=== PATIENT | female | born 1965 | race Hispanic/Latino ===

== ENCOUNTER 2018-02-21 11:42 | Inpatient (IN) | payer BC ==
[2018-02-21] MEDS ORDERED: Sodium Chloride 0.9% 1,000 ML IV SCH (12:45)
--- NOTE | 2018-02-21 12:47 | ED PDOC ---
Arrival/HPI - General Chief Complaint: Abdominal Pain Time Seen by Provider: 02/21/18 12:43 Historian: Patient - History of Present Illness Narrative History of Present Illness (Text): 02/21/18 12:51 52 year old female, whose past medical history includes hypertension, who presents to the emergency department complaining of diarrhea, vomiting, abdominal pain, fever, body aches, and headaches since Monday. Patient notes a fever of 102.6 recorded yesterday. Patient notes pain is intermittent. Patient denies any chills, chest pain, shortness of breath, dizziness, or any other complaints. Time/Duration: < week (5 days) Symptom Onset: Gradual Symptom Course: Unchanged Activities at Onset: Light Context: Home Past Medical History - Provider Review Nursing Documentation Reviewed: Yes - Infectious Disease Hx of Infectious Diseases: None - Cardiac Hx Cardiac Disorders: Yes Hx Hypertension: Yes - Pulmonary Hx Respiratory Disorders: No - Neurological Hx Neurological Disorder: No - HEENT Hx HEENT Disorder: No - Renal Hx Renal Disorder: No - Endocrine/Metabolic Hx Endocrine Disorders: No - Hematological/Oncological Hx Blood Disorders: Yes Hx Anemia: Yes Hx Blood Transfusions: No - Integumentary Hx Dermatological Disorder: No - Musculoskeletal/Rheumatological Hx Musculoskeletal Disorders: Yes (TEAR L KNEE MENISCUS) Hx Arthritis: Yes - Gastrointestinal Hx Gastrointestinal Disorders: No - Genitourinary/Gynecological Hx Genitourinary Disorders: No - Psychiatric Hx Psychophysiologic Disorder: Yes Hx Anxiety: Yes Hx Substance Use: No - Surgical History Hx Dilation and Curettage: Yes Hx Hysterectomy: Yes Hx Tonsillectomy: Yes Other/Comment: lumpectomy - Anesthesia Hx Anesthesia: Yes Hx Anesthesia Reactions: No Hx Malignant Hyperthermia: No - Suicidal Assessment Feels Threatened In Home Enviroment: No Family/Social History - Physician Review Nursing Documentation Reviewed: Yes Family/Social History: Unknown Family HX Smoking Status: Former Smoker Hx Alcohol Use: Yes Hx Substance Use: No Hx Substance Use Treatment: No Allergies/Home Meds Allergies/Adverse Reactions: Allergies blueberry Allergy (Severe, Verified 12/10/15 16:24) URTICARIA Penicillins Allergy (Severe, Verified 12/10/15 16:24) URTICARIA Home Medications: Home Meds Medication Instructions Recorded Confirmed Iron Fum,Ag/C/B12/Folic/Ca/Suc 1 tab PO DAILY 04/19/12 09/12/16 [Multigen Plus] PARoxetine [Paxil] 10 mg PO DAILY 04/19/12 09/12/16 Hydrochlorothiazide [HCTZ] 25 mg PO DAILY 02/27/14 09/12/16 Omeprazole 40 mg PO DAILY 02/27/14 09/12/16 Biotin [[facility] Biotin] 5,000 mcg PO DAILY 06/22/15 09/12/16 Cholecalciferol (Vitamin D3) 2,000 iu PO DAILY 06/22/15 09/12/16 [Vitamin D3] Losartan [Cozaar] 1 tab PO DAILY 12/10/15 09/12/16 Review of Systems - Physician Review All systems were reviewed & negative as marked: Yes - Review of Systems Constitutional: Normal Eyes: Normal ENT: Normal Respiratory: Normal. absent: SOB, Cough Cardiovascular: Normal. absent: Chest Pain Gastrointestinal: Abdominal Pain, Diarrhea, Vomiting Genitourinary Female: Normal. absent: Dysuria, Frequency Musculoskeletal: Other (general body aches) Skin: Normal. absent: Rash Neurological: Headache Endocrine: Normal Hemo/Lymphatic: Normal Psychiatric: Normal Physical Exam - Physical Exam Narrative Physical Exam (Text): 02/21/18 12:54 Gen: VS reviewed, alert, well developed, well nourished, nontoxic, mild distress. ENT: normal pharynx. Eye: EOMI, PERRL. Neck: no JVD, supple, no adenopathy. CV: regular rate, regular rhythm, no rubs, no murmur, no gallops, S1, S2, pulses equal and strong. Pulm: no distress, clear to auscultation, no wheeze, no rhonchi, breath sounds equal, no rales. Abd: mild mid and LLQ tenderness, no guarding, no rebound, no rigidity, normal bowel sounds. Ext: no edema. Skin: good color, no rash, no cyanosis. Psych: responds appropriately to questions, normal affect. Neuro: oriented x 3, CN2-12 intact grossly, motor intact, sensation intact. Vital Signs Reviewed: Yes Vital Signs Temp Pulse Resp BP Pulse Ox 02/21/18 12:34 99.0 F 72 16 146/86 99 Temperature: Afebrile Blood Pressure: Normal Pulse: Regular Respiratory Rate: Normal Appearance: Positive for: Well-Appearing, Non-Toxic, Comfortable Pain Distress: None Mental Status: Positive for: Alert and Oriented X 3 Medical Decision Making ED Course and Treatment: 02/21/18 12:55 Impression: 52 year old female presents to the emergency department complaining of diarrhea , vomiting, abdominal pain, fever, body aches, and headaches. Plan: -- CT abdomen/pelvis -- Labs -- Stool Culture -- Reassess and disposition Progress Notes: 02/21/18 15:[address] with contrast: Creator : Jaskaran Guajardo MD IMPRESSION: There is mild mural thickening throughout the colon consistent with colitis. There are no inflammatory changes in the adjacent fat planes. 02/21/18 16:01 Discussed case with , who is aware and accepts admission of patient to his service. Patient to be admitted for presumed infectious colitis. Patient would need IV antibiotics and IV fluids. 02/21/18 17:35 paient is aware of the large cyst in the left kidney and knows to follow up with urologist - Lab Interpretations Lab Results: 02/21/18 13:10 02/21/18 13:10 Lab Results 02/21/18 13:10: WBC 3.7 L D, RBC 4.48, Hgb 14.2, Hct 41.7, MCV 93.1, MCH 31.7, MCHC 34.1, RDW 13.2, Plt Count 224, MPV 9.8, Gran % 67.4, Lymph % (Auto) 20.9 L , [place] % (Auto) 9.8 H, Eos % (Auto) 1.4 L, Baso % (Auto) 0.5, Gran # 2.48, Lymph # (Auto) 0.8 L, [place] # (Auto) 0.4, Eos # (Auto) 0.1, Baso # (Auto) 0.02 02/21/18 13:10: Sodium 143, Potassium 3.4 L, Chloride 101, Carbon Dioxide 25, Anion Gap 20, BUN 10, Creatinine 0.7, Est GFR ( Amer) > 60, Est GFR (Non- Af Amer) > 60, Random Glucose 100, Calcium 9.5, Total Bilirubin 0.5, AST 53 H, ALT 89 H, Alkaline Phosphatase 64, Total Protein 7.1, Albumin 4.2, Globulin 2.9 , Albumin/Globulin Ratio 1.4, Lipase 54 I have reviewed the lab results: Yes - RAD Interpretation Radiology Orders: 02/21/18 12:44 ABDOMEN & PELVIS [ABD & PELVIS IV CONTRAST ONLY] [CT] Stat Director Data Architecture: Radiologist - Medication Orders Current Medication Orders: Hydrochlorothiazide (Hydrodiuril) 25 mg PO DAILY JAY Sodium Chloride (Sodium Chloride 0.9%) 1,000 mls @ 150 mls/hr IV .[id number] JAY Last Admin: 02/21/18 13:20 Dose: 150 mls/hr eMAR Start Stop Document 02/21/18 13:20 MS (Rec: 02/21/18 13:20 MS [id number]) Intravenous Solution Start Date 02/21/18 Start Time 13:20 Ciprofloxacin (Cipro 400mg/200ml Dsw) 400 mg in 200 mls @ 133.3 mls/hr IVPB Q12 JAY PRN Reason: Protocol Stop: 02/21/18 23:31 Metronidazole (Flagyl) 500 mg in 100 mls @ 100 mls/hr IVPB Q8 JAY PRN Reason: Protocol Last Admin: 02/21/18 16:38 Dose: 100 mls/hr eMAR Start Stop Document 02/21/18 16:38 MS (Rec: 02/21/18 16:38 MS [id number]) Intravenous Solution Start Date 02/21/18 Start Time 16:38 End Date 02/21/18 End time 17:38 Total Infusion Time 60 Losartan Potassium (Cozaar) 50 mg PO DAILY JAY Paroxetine HCl (Paxil) 10 mg PO DAILY JAY Discontinued Medications Ciprofloxacin (Cipro 400mg/200ml Dsw) 400 mg in 200 mls @ 133.3 mls/hr IVPB STAT STA PRN Reason: Protocol Stop: 02/21/18 17:22 Metronidazole (Flagyl) 500 mg in 100 mls @ 100 mls/hr IVPB STAT STA PRN Reason: Protocol Stop: 02/21/18 16:52 - Scribe Statement The provider has reviewed the documentation as recorded by the Scribsaeed Trivedi All medical record entries made by the Scribe were at my direction and personally dictated by me. I have reviewed the chart and agree that the record accurately reflects my personal performance of the history, physical exam, medical decision making, and the department course for this patient. I have also personally directed, reviewed, and agree with the discharge instructions and disposition. Disposition/Present on Arrival - Present on Arrival Any Indicators Present on Arrival: No History of DVT/PE: No History of Uncontrolled Diabetes: No Urinary Catheter: No History of Decub. Ulcer: No History Surgical Site Infection Following: None - Disposition Have Diagnosis and Disposition been Completed?: Yes Diagnosis: Colitis Disposition: HOSPITALIZED Disposition Time: 16:02 Patient Plan: Admission Patient Problems: Current Active Problems Problem Status Onset Colitis Acute Condition: FAIR
[2018-02-21] MEDS: Sodium Chloride 0.9% 1,000 ML IV SCH (13:20)
[2018-02-21 13:23] LABS: BASO # 0.02 K/mm3 (0.0-2.0); BASO % 0.5 % (0.0-3.0); EOS # 0.1 (0.0-0.7); EOS % 1.4 % (1.5-5.0); GRAN # 2.48 (1.4-6.5); GRAN % 67.4 % (50.0-68.0); HEMOGLOBIN 14.2 g/dL (12.0-16.0); LYMPH # 0.8 (1.2-3.4); LYMPH % 20.9 % (22.0-35.0); MEAN CELL VOLUME 93.1 fl (80.0-105.0); MEAN CORPUSCULAR HEMOGLOBIN 31.7 pg (25.0-35.0); MEAN CORPUSCULAR HGB CONC 34.1 g/dl (31.0-37.0); MEAN PLATELET VOLUME 9.8 fl (7.0-11.0); MONO # 0.4 (0.1-0.6); MONO % 9.8 % (1.0-6.0); RBC 4.48 10^6/uL (3.5-6.1); RED CELL DISTRIBUTION WIDTH 13.2 % (11.5-14.5); WHITE BLOOD COUNT 3.7 10^3/ul (4.5-11.0)
[2018-02-21 14:21] LABS: BLOOD UREA NITROGEN 10 mg/dL (7-21); CALCIUM 9.5 mg/dL (8.4-10.5); GFR AFRICAN-AMERICAN > 60; GFR NON-AFRICAN AMERICAN > 60
[2018-02-21 14:22] LABS: ALB/GLOB RATIO 1.4 (1.1-1.8); ALBUMIN 4.2 g/dL (3.0-4.8); ALT/SGPT 89 U/L (7-56); AST/SGOT 53 U/L (14-36); LIPASE 54 U/L (23-300)
[2018-02-21] MEDS ORDERED: Iohexol 350 MG/100 ML VIAL ONE (14:32)
--- NOTE | 2018-02-21 15:05 | CT ---
Date of service: 02/21/2018 PROCEDURE: CT Abdomen and Pelvis with contrast HISTORY: mid and llq pain, fever COMPARISON: None. TECHNIQUE: Contrast dose: 100 cc of Omni 350 Radiation dose: Total exam DLP = 1031 mGy-cm. This CT exam was performed using one or more of the following dose reduction techniques: Automated exposure control, adjustment of the mA and/or kV according to patient size, and/or use of iterative reconstruction technique. FINDINGS: LOWER THORAX: Unremarkable. LIVER: Unremarkable. No gross lesion or ductal dilatation. GALLBLADDER AND BILE DUCTS: Unremarkable. PANCREAS: Unremarkable. No gross lesion or ductal dilatation. SPLEEN: Unremarkable. ADRENALS: Unremarkable. No mass. KIDNEYS AND URETERS: Unremarkable. No hydronephrosis. No solid mass. VASCULATURE: Unremarkable. No aortic aneurysm. BOWEL: There is mild mural thickening throughout the colon consistent with colitis. There are no inflammatory changes in the adjacent fat planes. APPENDIX: Normal appendix. PERITONEUM: Unremarkable. No free fluid. No free air. LYMPH NODES: Unremarkable. No enlarged lymph nodes. BLADDER: Unremarkable. REPRODUCTIVE: Unremarkable. BONES: No acute fracture. OTHER FINDINGS: None. IMPRESSION: There is mild mural thickening throughout the colon consistent with colitis. There are no inflammatory changes in the adjacent fat planes.
[2018-02-21] MEDS ORDERED: Ciprofloxacin 400mg/200ml D5W 400 MG/200 ML BAG IVPB STA (15:52)
[2018-02-21] MEDS ORDERED: metroNIDAZOLE IV 500 mg/100 ml 500 MG/100 ML BAG IVPB STA (15:53)
[2018-02-21] MEDS: metroNIDAZOLE IV 500 mg/100 ml 500 MG/100 ML BAG IVPB SCH ×2 (16:38→22:15)
[2018-02-21] MEDS ORDERED: Ciprofloxacin 400mg/200ml D5W 400 MG/200 ML BAG IVPB SCH (22:00)
[2018-02-22] MEDS: metroNIDAZOLE IV 500 mg/100 ml 500 MG/100 ML BAG IVPB SCH ×3 (05:29→21:55)
[2018-02-22] MEDS: Sodium Chloride 0.9% 1,000 ML IV SCH (05:31)
[2018-02-22 07:17] LABS: HEMOGLOBIN 13.4 g/dL (12.0-16.0); MEAN CELL VOLUME 92.9 fl (80.0-105.0); MEAN CORPUSCULAR HEMOGLOBIN 30.7 pg (25.0-35.0); MEAN PLATELET VOLUME 9.8 fl (7.0-11.0); RBC 4.37 10^6/uL (3.5-6.1); WHITE BLOOD COUNT 3.6 10^3/ul (4.5-11.0)
[2018-02-22 07:51] LABS: ALB/GLOB RATIO 1.3 (1.1-1.8); ALBUMIN 3.9 g/dL (3.0-4.8); ALT/SGPT 75 U/L (7-56); AST/SGOT 34 U/L (14-36); BLOOD UREA NITROGEN 8 mg/dL (7-21); GFR AFRICAN-AMERICAN > 60; GFR NON-AFRICAN AMERICAN > 60
[2018-02-22 08:36] VITALS: BMI 30.7
[2018-02-22] MEDS ORDERED: Potassium Chloride 20 mEq ER Tab PO STA (08:45)
--- NOTE | 2018-02-22 08:47 | CP.PCM.HP ---
<Lashanda Carlos - Last Filed: 02/22/18 12:30> History of Present Illness - History of Present Illness History of Present Illness: H&P for Poly Mayer PGY3 This is a 52yo female with past medical history of HTN and GERD who came to ED for fever, abdominal pain, nausea/vomiting and diarrhea for 4 days. Patient states she checked her fever at home and it was 102. She was having abdominal pain that was epigastric and cramping that was intermittent and radiated throughout her abdomen. She was having ~ 10 episodes of non-bloody diarrhea per day and had 1-2 episodes of non-blood/non-bilious vomiting. She denies recent travel, new foods, sick contacts or anyone sick at home or recent antibiotics use. She had a colonoscopy about 3 years ago with 2 polyps found consistent for tubular adenomas. This morning patient is resting comfortably in bed and saying that her diarrhea has been improving and has been feeling more hungry. Patient denies chest pain, shortness of breath, nausea/vomiting, fever/chills, dysuria/ hematuria, numbness/tingling. Past medical history: HTN, GERD, depression Past surgical history: hysterectomy, L breast lumpectomy, L knee meniscus repair Home meds: Reviewed Allergies: blueberry Social history: Former smoker (quit 12yrs ago), drinks alcohol socially, denies drug use. Lives with family Family history: Maternal grandfather: Colon ca. HTN, DM runs in family Present on Admission - Present on Admission Any Indicators Present on Admission: No Review of Systems - Review of Systems All systems: reviewed and no additional remarkable complaints except Review of Systems: 12 point ROS reviewed as per HPI and is otherwise negative Past Patient History - Infectious Disease Hx of Infectious Diseases: None - Past Social History Smoking Status: Former Smoker - CARDIAC Hx Cardiac Disorders: Yes Hx Hypertension: Yes - PULMONARY Hx Respiratory Disorders: No - NEUROLOGICAL Hx Neurological Disorder: No - HEENT Hx HEENT Problems: No - RENAL Hx Chronic Kidney Disease: No - ENDOCRINE/METABOLIC Hx Endocrine Disorders: No - HEMATOLOGICAL/ONCOLOGICAL Hx Blood Disorders: Yes Hx Anemia: Yes - INTEGUMENTARY Hx Dermatological Problems: No - MUSCULOSKELETAL/RHEUMATOLOGICAL Hx Falls: No - GASTROINTESTINAL Hx Gastrointestinal Disorders: No - GENITOURINARY/GYNECOLOGICAL Hx Genitourinary Disorders: No - PSYCHIATRIC Hx Psychophysiologic Disorder: Yes Hx Anxiety: Yes - SURGICAL HISTORY Hx Hysterectomy: Yes Other/Comment: lumpectomy - ANESTHESIA Hx Anesthesia: Yes Hx Anesthesia Reactions: No Hx Malignant Hyperthermia: No Meds Allergies/Adverse Reactions: Allergies Allergy/AdvReac Type Severity Reaction Status Date / Time blueberry Allergy Severe URTICARIA Verified 12/10/15 16:24 Physical Exam - Constitutional Appears: No Acute Distress - Head Exam Head Exam: ATRAUMATIC, NORMAL INSPECTION, NORMOCEPHALIC - Eye Exam Eye Exam: Normal appearance, PERRL Pupil Exam: NORMAL ACCOMODATION, PERRL - ENT Exam ENT Exam: Mucous Membranes Moist - Respiratory Exam Respiratory Exam: Clear to Auscultation Bilateral, NORMAL BREATHING PATTERN. absent: Rales, Rhonchi, Wheezes - Cardiovascular Exam Cardiovascular Exam: REGULAR RHYTHM, +S1, +S2. absent: Gallop, Rubs, Systolic Murmur - GI/Abdominal Exam GI & Abdominal Exam: Normal Bowel Sounds, Soft, Tenderness (epigastric ). absent: Mass, Rebound, Rigid - Extremities Exam Extremities exam: Positive for: normal inspection. Negative for: calf tenderness, pedal edema - Neurological Exam Neurological exam: Alert, CN II-XII Intact, Normal Gait, Oriented x3 - Psychiatric Exam Psychiatric exam: Normal Affect, Normal Mood - Skin Skin Exam: Dry, Warm Results - Vital Signs Recent Vital Signs: Last Vital Signs Temp 99.6 F 02/22/18 02:26 Pulse 70 02/22/18 02:26 Resp 18 02/22/18 02:26 BP 137/74 02/22/18 02:26 Pulse Ox 97 02/21/18 22:00 - Labs Result Diagrams: 02/22/18 06:30 02/22/18 06:30 Labs: Laboratory Results - last 24 hr 02/22/18 02/22/18 06:30 06:30 WBC 3.6 L RBC 4.37 Hgb 13.4 Hct 40.6 MCV 92.9 MCH 30.7 MCHC 33.0 RDW 13.0 Plt Count 229 MPV 9.8 Sodium 142 Potassium 2.9 L* Chloride 102 Carbon Dioxide 29 Anion Gap 14 BUN 8 Creatinine 0.7 Est GFR ( Amer) > 60 Est GFR (Non-Af Amer) > 60 Random Glucose 93 Calcium 9.0 Phosphorus 4.3 Magnesium 1.7 Total Bilirubin 0.5 AST 34 ALT 75 H Alkaline Phosphatase 54 Total Protein 6.9 Albumin 3.9 Globulin 3.0 Albumin/Globulin Ratio 1.3 Assessment & Plan - Assessment and Plan (Free Text) Assessment: This is a 52yo female with past medical history of HTN and GERD who is admitted for 1. Colitis - seen on CT v. gastroenteritis 2. Hypokalemia - secondary to diarrhea 3. HTN 4. GERD 5. Hx of Depression Plan: Continue IV antibiotics. Patient is now afebrile. Advance diet as tolerated. Replace electrolytes as needed and will recheck in AM. GI consulted. Recommendations appreciated. Recommended low fat/lactose diet. If patient tolerates diet will discharge home tomorrow. She is on GI prophylaxis and is ambulating well. Case seen, discussed and reviewed with Dr. Juno Carlos PGY3 - Date & Time Date: 02/22/18 Time: 07:00 <Junior Fraire - Last Filed: 02/22/18 22:01> Results - Vital Signs Recent Vital Signs: Last Vital Signs Temp 98.7 F 02/22/18 14:00 Pulse 96 H 02/22/18 14:00 Resp 18 02/22/18 14:00 BP 119/73 02/22/18 14:00 Pulse Ox 96 02/22/18 14:00 - Labs Result Diagrams: 02/22/18 06:30 02/22/18 06:30 Labs: Laboratory Results - last 24 hr 02/22/18 02/22/18 06:30 06:30 WBC 3.6 L RBC 4.37 Hgb 13.4 Hct 40.6 MCV 92.9 MCH 30.7 MCHC 33.0 RDW 13.0 Plt Count 229 MPV 9.8 Sodium 142 Potassium 2.9 L* Chloride 102 Carbon Dioxide 29 Anion Gap 14 BUN 8 Creatinine 0.7 Est GFR ( Amer) > 60 Est GFR (Non-Af Amer) > 60 Random Glucose 93 Calcium 9.0 Phosphorus 4.3 Magnesium 1.7 Total Bilirubin 0.5 AST 34 ALT 75 H Alkaline Phosphatase 54 Total Protein 6.9 Albumin 3.9 Globulin 3.0 Albumin/Globulin Ratio 1.3 Assessment & Plan - Assessment and Plan (Free Text) Plan: Pt seen and examined. I have reviewed the note of the medical device assembler and agree with it. I have discussed the assessment and plan with the resident. I have reviewed the patient's labs and medications. Pt with colitis. She is feeling better. She is tolerating liq diet.
[2018-02-22] MEDS ORDERED: Non Formulary Medication (Hydrochlorothiazide [Hctz] 25 MG) PO SCH (10:00)
--- NOTE | 2018-02-22 11:06 | CON ---
DATE: 02/22/2018 GASTROENTEROLOGY CONSULTATION REQUESTING PHYSICIAN: Junior Fraire MD REASON FOR CONSULTATION: I have been asked to see this 52-year-old female with a history of hypertension who was admitted to the hospital with 4 days of diarrhea and mid abdominal cramps. She had one episode of vomiting in the emergency room. She also has been running temperatures of 101 with a T-max of 102.6 two days ago. She denies any rectal bleeding, hematemesis or melena. She denies any recent travel or ingestion of any unusual foods. She states that her bowel movements are becoming less frequent and less watery. She denies any recent antibiotic use. PAST MEDICAL HISTORY: Notable for hypertension. PAST SURGICAL HISTORY: Notable for left knee surgery for meniscus repair, lumpectomy and hysterectomy. SOCIAL HISTORY: She consumes alcohol on a social basis. She quit smoking years ago. FAMILY HISTORY: Noncontributory. REVIEW OF SYSTEMS: A 14-point review of systems is positive for diarrhea and abdominal pain. MEDICATIONS AT HOME: Include losartan, vitamin D3, omeprazole, hydrochlorothiazide and Paxil. PHYSICAL EXAMINATION: GENERAL: Well-developed female, lying in bed, in no acute distress. VITAL SIGNS: Reveal temperature of 99.6, blood pressure 137/74, heart rate 70. HEENT: Reveal sclerae to be white. Conjunctivae pink. NECK: Supple. CHEST: Lungs are clear. HEART: Reveals regular rate and rhythm. ABDOMEN: Soft, nontender. EXTREMITIES: Show no edema. LABORATORY DATA: Reveal white blood cell count 3.6, hemoglobin 13.4. Chemistries reveal potassium of 2.9, AST 34, ALT 75, alkaline phosphatase of 54. CT scan of the abdomen and pelvis reveal just mild nonspecific diffuse mural thickening of the colon. No pericolonic inflammation or fluid collection is seen. IMPRESSION: Probable acute gastroenteritis, clinically improving. RECOMMENDATIONS: 1. I will advance the patient to a low-fat lactose-free diet. 2. Replace potassium as she is hypokalemic secondary to a diarrhea. Note, she has had a colonoscopy within the last 10 years. 3. If diet is tolerated, she can be discharged to home with outpatient followup. Casimiro Michelle MD
[2018-02-22 12:54] LABS: HEPATITIS A IGM NEGATIVE (NEGATIVE); HEPATITIS B CORE AB NEGATIVE (NEGATIVE); HEPATITIS B SURFACE AG Negative (NEGATIVE)
[2018-02-22 13:03] LABS: HEPATITIS C ANTIBODY NEGATIVE (NEGATIVE)
[2018-02-22] MEDS ORDERED: Potassium Chloride 20 mEq ER Tab PO ONE (14:00)
--- NOTE | 2018-02-23 05:40 | CP.PCM.DIS ---
<TerranceLashanda - Last Filed: 02/23/18 09:27> Provider - Provider Date of Admission: 02/21/18 16:02 Attending physician: Junior Fraire MD Primary care physician: Junior Fraire MD Consults: GI: Dr. Michelle Time Spent in preparation of Discharge (in minutes): 35 Hospital Course - Lab Results Lab Results: Most Recent Lab Values WBC 3.6 10^3/ul (4.5-11.0) L 02/22/18 06:30 RBC 4.37 10^6/uL (3.5-6.1) 02/22/18 06:30 Hgb 13.4 g/dL (12.0-16.0) 02/22/18 06:30 Hct 40.6 % (36.0-48.0) 02/22/18 06:30 MCV 92.9 fl (80.0-105.0) 02/22/18 06:30 MCH 30.7 pg (25.0-35.0) 02/22/18 06:30 MCHC 33.0 g/dl (31.0-37.0) 02/22/18 06:30 RDW 13.0 % (11.5-14.5) 02/22/18 06:30 Plt Count 229 10^3/uL (120.0-450.0) 02/22/18 06:30 MPV 9.8 fl (7.0-11.0) 02/22/18 06:30 Gran % 67.4 % (50.0-68.0) 02/21/18 13:10 Lymph % (Auto) 20.9 % (22.0-35.0) L 02/21/18 13:10 Long % (Auto) 9.8 % (1.0-6.0) H 02/21/18 13:10 Eos % (Auto) 1.4 % (1.5-5.0) L 02/21/18 13:10 Baso % (Auto) 0.5 % (0.0-3.0) 02/21/18 13:10 Gran # 2.48 (1.4-6.5) 02/21/18 13:10 Lymph # (Auto) 0.8 (1.2-3.4) L 02/21/18 13:10 Long # (Auto) 0.4 (0.1-0.6) 02/21/18 13:10 Eos # (Auto) 0.1 (0.0-0.7) 02/21/18 13:10 Baso # (Auto) 0.02 K/mm3 (0.0-2.0) 02/21/18 13:10 Sodium 142 mmol/L (132-148) 02/22/18 06:30 Potassium 2.9 mmol/L (3.6-5.0) L* 02/22/18 06:30 Chloride 102 mmol/L (98-107) 02/22/18 06:30 Carbon Dioxide 29 mmol/L (21-33) 02/22/18 06:30 Anion Gap 14 (10-20) 02/22/18 06:30 BUN 8 mg/dL (7-21) 02/22/18 06:30 Creatinine 0.7 mg/dl (0.7-1.2) 02/22/18 06:30 Est GFR ( Amer) > 60 02/22/18 06:30 Est GFR (Non-Af Amer) > 60 02/22/18 06:30 Random Glucose 93 mg/dL (70-110) 02/22/18 06:30 Calcium 9.0 mg/dL (8.4-10.5) 02/22/18 06:30 Phosphorus 4.3 mg/dL (2.5-4.5) 02/22/18 06:30 Magnesium 1.7 mg/dL (1.7-2.2) 02/22/18 06:30 Total Bilirubin 0.5 mg/dL (0.2-1.3) 02/22/18 06:30 AST 34 U/L (14-36) 02/22/18 06:30 ALT 75 U/L (7-56) H 02/22/18 06:30 Alkaline Phosphatase 54 U/L (38-126) 02/22/18 06:30 Total Protein 6.9 g/dL (5.8-8.3) 02/22/18 06:30 Albumin 3.9 g/dL (3.0-4.8) 02/22/18 06:30 Globulin 3.0 gm/dL 02/22/18 06:30 Albumin/Globulin Ratio 1.3 (1.1-1.8) 02/22/18 06:30 Lipase 54 U/L (23-300) 02/21/18 13:10 Hepatitis A IgM Ab Negative (NEGATIVE) 02/21/18 13:10 Hep Bs Antigen Negative (NEGATIVE) 02/21/18 13:10 Hep B Core IgM Ab Negative (NEGATIVE) 02/21/18 13:10 Hepatitis C Antibody Negative (NEGATIVE) 02/21/18 13:10 - Hospital Course Hospital Course: This is a 52yo female with past medical history of HTN and GERD who is admitted for abdominal pain with fever, diarrhea and nausea. Labs and imaging were reviewed. Patient was evaluated by GI and was thought to have gastroenteritis. Patient was placed on IV antibiotics. She was found to be hypokalemic and her electrolytes were replaced. She remained afebrile and diet was advanced. She tolerated a regular low fat/lactose free diet. Her diarrhea improved. Patient will be discharged home with 7 days of Cipro and Flagyl that was sent to her pharmacy. Patient will follow up with Dr. Fraire, her PMD as outpatient. Patient verbalized and agreed with discharge plan. - Date & Time of H&P Date of H&P: 02/22/18 Time of H&P: 10:00 Discharge Exam - Head Exam Head Exam: ATRAUMATIC, NORMAL INSPECTION, NORMOCEPHALIC - Eye Exam Eye Exam: Normal appearance, PERRL Pupil Exam: NORMAL ACCOMODATION - ENT Exam ENT Exam: Mucous Membranes Moist - Respiratory Exam Respiratory Exam: Clear to PA & Lateral, NORMAL BREATHING PATTERN, UNREMARKABLE. absent: Rhonchi, Wheezes - Cardiovascular Exam Cardiovascular Exam: REGULAR RHYTHM, +S1, +S2. absent: Gallop, Rubs, Systolic Murmur - GI/Abdominal Exam GI & Abdominal Exam: Normal Bowel Sounds, Soft, Tenderness (mild epigrastic ), Unremarkable. absent: Mass, Rebound, Rigid - Neurological Exam Neurological exam: Alert, CN II-XII Intact, Oriented x3 - Skin Skin Exam: Dry, Intact, Warm Discharge Plan - Discharge Medications Prescriptions: Ciprofloxacin [Cipro] 500 mg PO BID #14 tab metroNIDAZOLE [Flagyl] 500 mg PO Q8H #21 tab - Follow Up Plan Condition: FAIR Disposition: HOME/ ROUTINE Instructions: Diarrhea in Adolescents and Adults, Ulcerative Colitis in Adults Additional Instructions: 1. Finish antibiotic course for 1 week. 2. Continue soft with low fat, lactose free diet for a few days. Increase diet as tolerated. 3. Follow up with Dr. Fraire in a couple of weeks. 4. Continue regular home medications. Referrals: Junior Fraire MD [Primary Care Provider] - <Junior Fraire - Last Filed: 02/25/18 15:34> Provider - Provider Date of Admission: 02/21/18 16:02 Attending physician: Junior Fraire MD Primary care physician: Junior Fraire MD Hospital Course - Lab Results Lab Results: Micro Results 02/22/18 09:59 Stool C. difficile Antigen & Toxin A,B (M - Final Most Recent Lab Values WBC 3.5 10^3/ul (4.5-11.0) L 02/23/18 07:15 RBC 4.14 10^6/uL (3.5-6.1) 02/23/18 07:15 Hgb 13.0 g/dL (12.0-16.0) 02/23/18 07:15 Hct 38.2 % (36.0-48.0) 02/23/18 07:15 MCV 92.3 fl (80.0-105.0) 02/23/18 07:15 MCH 31.4 pg (25.0-35.0) 02/23/18 07:15 MCHC 34.0 g/dl (31.0-37.0) 02/23/18 07:15 RDW 13.1 % (11.5-14.5) 02/23/18 07:15 Plt Count 236 10^3/uL (120.0-450.0) 02/23/18 07:15 MPV 9.5 fl (7.0-11.0) 02/23/18 07:15 Gran % 67.4 % (50.0-68.0) 02/21/18 13:10 Lymph % (Auto) 20.9 % (22.0-35.0) L 02/21/18 13:10 Long % (Auto) 9.8 % (1.0-6.0) H 02/21/18 13:10 Eos % (Auto) 1.4 % (1.5-5.0) L 02/21/18 13:10 Baso % (Auto) 0.5 % (0.0-3.0) 02/21/18 13:10 Gran # 2.48 (1.4-6.5) 02/21/18 13:10 Lymph # (Auto) 0.8 (1.2-3.4) L 02/21/18 13:10 Long # (Auto) 0.4 (0.1-0.6) 02/21/18 13:10 Eos # (Auto) 0.1 (0.0-0.7) 02/21/18 13:10 Baso # (Auto) 0.02 K/mm3 (0.0-2.0) 02/21/18 13:10 Sodium 145 mmol/L (132-148) 02/23/18 07:15 Potassium 3.5 mmol/L (3.6-5.0) L 02/23/18 07:15 Chloride 106 mmol/L (98-107) 02/23/18 07:15 Carbon Dioxide 27 mmol/L (21-33) 02/23/18 07:15 Anion Gap 15 (10-20) 02/23/18 07:15 BUN 11 mg/dL (7-21) 02/23/18 07:15 Creatinine 0.7 mg/dl (0.7-1.2) 02/23/18 07:15 Est GFR ( Amer) > 60 02/23/18 07:15 Est GFR (Non-Af Amer) > 60 02/23/18 07:15 Random Glucose 101 mg/dL (70-110) 02/23/18 07:15 Calcium 8.8 mg/dL (8.4-10.5) 02/23/18 07:15 Phosphorus 3.9 mg/dL (2.5-4.5) 02/23/18 07:15 Magnesium 1.8 mg/dL (1.7-2.2) 02/23/18 07:15 Total Bilirubin 0.4 mg/dL (0.2-1.3) 02/23/18 07:15 AST 26 U/L (14-36) 02/23/18 07:15 ALT 65 U/L (7-56) H 02/23/18 07:15 Alkaline Phosphatase 52 U/L (38-126) 02/23/18 07:15 Total Protein 6.7 g/dL (5.8-8.3) 02/23/18 07:15 Albumin 3.8 g/dL (3.0-4.8) 02/23/18 07:15 Globulin 2.9 gm/dL 02/23/18 07:15 Albumin/Globulin Ratio 1.3 (1.1-1.8) 02/23/18 07:15 Lipase 54 U/L (23-300) 02/21/18 13:10 Hepatitis A IgM Ab Negative (NEGATIVE) 02/21/18 13:10 Hep Bs Antigen Negative (NEGATIVE) 02/21/18 13:10 Hep B Core IgM Ab Negative (NEGATIVE) 02/21/18 13:10 Hepatitis C Antibody Negative (NEGATIVE) 02/21/18 13:10 - Hospital Course Hospital Course: Pt seen and examined. This is a late entry. I have reviewed the note of the infertility medical assistant and agree with it. I have discussed the assessment and plan with the resident. I have reviewed the patient's labs and medications.Pt had colitis that improved. She is comfortable. She was placed on PO Abx and discharged home to f/u as out-pt.
[2018-02-23] MEDS: metroNIDAZOLE IV 500 mg/100 ml 500 MG/100 ML BAG IVPB SCH (06:11)
[2018-02-23] MEDS ORDERED: Pantoprazole 40 mg EC Tab PO SCH (06:30)
[2018-02-23 07:37] LABS: MEAN CELL VOLUME 92.3 fl (80.0-105.0); MEAN CORPUSCULAR HEMOGLOBIN 31.4 pg (25.0-35.0); MEAN PLATELET VOLUME 9.5 fl (7.0-11.0); RBC 4.14 10^6/uL (3.5-6.1); RED CELL DISTRIBUTION WIDTH 13.1 % (11.5-14.5); WHITE BLOOD COUNT 3.5 10^3/ul (4.5-11.0)
[2018-02-23 08:00] LABS: ALB/GLOB RATIO 1.3 (1.1-1.8); ALBUMIN 3.8 g/dL (3.0-4.8); ALT/SGPT 65 U/L (7-56); AST/SGOT 26 U/L (14-36); BLOOD UREA NITROGEN 11 mg/dL (7-21); CALCIUM 8.8 mg/dL (8.4-10.5); GFR AFRICAN-AMERICAN > 60; GFR NON-AFRICAN AMERICAN > 60
[2018-02-23] MEDS ORDERED: Potassium Chloride 20 mEq ER Tab PO STA (08:12)
[2018-02-23 09:08] VITALS: BP 149/87; PULSE 58; RESP 20; TEMP 98.1; O2SAT 97
--- NOTE | 2018-02-23 10:34 | PN ---
DATE: 02/23/2018 SUBJECTIVE: The patient is feeling better. Abdominal pain and diarrhea have improved. Her bowel movements are becoming less watery and less frequent. She denies any fevers or chills. PHYSICAL EXAMINATION: VITAL SIGNS: Reveal temperature of 98.1, blood pressure 149/87, heart rate of 58. HEENT: Reveals sclerae to be white. Conjunctivae pink. Oral mucosa is moist. NECK: Supple. CHEST: Reveals lungs to be clear. HEART: Reveals regular rate and rhythm. ABDOMEN: Soft. Minimal diffuse tenderness. No rebound. No guarding. EXTREMITIES: Show no edema. LABORATORY DATA: Reveal potassium of 3.5, white blood cell count of 3.5, hemoglobin 13. No stool cultures have been sent. IMPRESSION: Acute gastroenteritis. RECOMMENDATIONS: 1. Replace potassium. 2. The patient has been advised to continue a low-fat, lactose-free diet. 3. The patient has been informed to follow up with me in the office. Casimiro Michelle MD
== END 2018-02-23 14:21 | disposition home or self-care (01) | DRG 392 ==
LOC: ED 11:42 → ERH 16:02 → 5RSO 19:45
PROVIDERS: ADMIT Internal Medicine Nephrology; ATTEND Internal Medicine Nephrology
DX: K52.9 Noninfective gastroenteritis and colitis, unspecified (principal); E87.6 Hypokalemia; I10 Essential (primary) hypertension; K21.9 Gastro-esophageal reflux disease without esophagitis; N28.1 Cyst of kidney, acquired; Z80.0 Family history of malignant neoplasm of digestive organs; Z82.49 Family history of ischemic heart disease and other diseases of the circulatory system; Z83.3 Family history of diabetes mellitus; Z87.891 Personal history of nicotine dependence; Z88.0 Allergy status to penicillin

== ENCOUNTER 2018-10-03 10:04 | Outpatient (CLI) | payer BC | END 2018-10-03 10:05 | disposition home or self-care (01) | LOC: RAD 10:04 | DX: Z12.31 Encounter for screening mammogram for malignant neoplasm of breast (principal) ==